=== PATIENT | female | born 1985 | race Two or more races ===

== ENCOUNTER → 2017-04-05 | Outpatient (CLI) | payer BC | END | disposition home or self-care (01) | LOC: US 13:40 | DX: O20.9 Hemorrhage in early pregnancy, unspecified (principal); O26.893 Other specified pregnancy related conditions, third trimester; N88.8 Other specified noninflammatory disorders of cervix uteri; R10.31 Right lower quadrant pain; Z3A.00 Weeks of gestation of pregnancy not specified | CPT/HCPCS: 76801; 76817 ==